=== PATIENT | female | born 1960 | race African-American/Black ===

== ENCOUNTER 2021-12-30 10:56 | Outpatient (CLI) | payer OTHER | END 2021-12-30 10:57 | disposition home or self-care (01) | LOC: NAV RAD 10:56 | PROVIDERS: ATTEND Family Medicine | DX: Z02.71 Encounter for disability determination (principal); M51.36 Other intervertebral disc degeneration, lumbar region; M47.816 Spondylosis without myelopathy or radiculopathy, lumbar region; M43.16 Spondylolisthesis, lumbar region | CPT/HCPCS: 72100 ==